=== PATIENT | male | born 1995 | race Caucasian/White ===

== ENCOUNTER 2023-12-09 13:15 | Emergency (ER) | payer SELFPAY ==
[~2023-12-09] VITALS: Ht 188 cm; Wt 94.0 kg
[2023-12-09] MEDS: HYDROcodone/acetaminophen 10/325mg tab PO ONE (14:15)
[2023-12-09] MEDS: TETanus/Pertussis (Acell)/Diphther VAC/PF (Tdap-Adult) 0.5ml syringe IMVAC ONE (14:16)
[2023-12-09] MEDS: ceFAZolin 1gm IM kit IM ONE (14:19)
[2023-12-09] MEDS ORDERED: AMOX-117 PO (14:20)
[2023-12-09] MEDS ORDERED: HYDR-3972 PO (14:59)
== END 2023-12-09 15:07 | disposition home or self-care (01) ==
LOC: ER 13:17
DX: S62.393A Other fracture of third metacarpal bone, left hand, initial encounter for closed fracture (principal); S62.395A Other fracture of fourth metacarpal bone, left hand, initial encounter for closed fracture; S67.22XA Crushing injury of left hand, initial encounter; S67.21XA Crushing injury of right hand, initial encounter; L03.113 Cellulitis of right upper limb; X58.XXXA Exposure to other specified factors, initial encounter; Y93.89 Activity, other specified; Y92.89 Other specified places as the place of occurrence of the external cause; Y99.8 Other external cause status
CPT/HCPCS: 29125; 73110; 73130; 90471; 90715; 96372; 99284; J0690